=== PATIENT | female | born 1990 | race Caucasian/White ===

== ENCOUNTER 2021-01-25 02:28 | Emergency (ER) | payer BC, OTHER ==
[2021-01-25] MEDS ORDERED: ONDANSETRON 4 MG/2 ML VIAL IVPUSH ONE ×3 (02:43→12:56)
[2021-01-25] MEDS ORDERED: morphine CARPU-JECT 4 MG/1 ML DISP.SYRIN IVPUSH ONE (02:43)
[2021-01-25] MEDS ORDERED: ACETAMINOPHEN 1000 MG/100 ML VIAL IVPB ONE (02:43)
[2021-01-25] MEDS ORDERED: LACTATED RINGERS SOLUTION 1000 ML INFUS.BAG IV ONE ×2 (02:44→04:48)
[2021-01-25] MEDS ORDERED: morphine SULFATE 4 MG/ML VIAL ONE (02:46)
[2021-01-25] MEDS ORDERED: ONDANSETRON 4 MG/2 ML VIAL ONE ×3 (02:46→13:08)
[2021-01-25] MEDS ORDERED: ACETAMINOPHEN INJECTION 100 ML IVPB ONE (02:46)
[2021-01-25 03:01] LABS: EOS % 1.4 % (0-4.5); HEMATOCRIT 42.1 % (32.4-45.2); HEMOGLOBIN 14.4 GM/dL (10.7-15.3); LYMPH % 24.1 % (8-40); MCH 29.7 pg (25.7-33.7); MCHC 34.2 g/dl (32.0-36.0); MEAN CELL VOLUME 86.8 fl (80-96); MEAN PLT VOLUME 7.4 fl (7.5-11.1); MONO % 3.6 % (3.8-10.2); NEUT % 69.9 % (42.8-82.8); PLATELET COUNT 379 10^3/uL (134-434); RBC 4.85 M/mm3 (3.60-5.2); RDW 12.2 % (11.6-15.6); WHITE BLOOD COUNT 19.1 K/mm3 (4.0-10.0)
[2021-01-25 03:08] VITALS: BMI 22.8
[2021-01-25 03:09] LABS: PROTHROMBIN TIME (PATIENT) 11.2 SEC (9.7-13.0)
[2021-01-25 03:11] LABS: ACTIVATED PTT 26.5 SECONDS (25.2-36.5)
[2021-01-25 03:22] LABS: CHLORIDE 106 mmol/L (98-107); SODIUM 140 mmol/L (136-145)
[2021-01-25 03:24] LABS: CALCIUM 9.1 mg/dL (8.5-10.1)
[2021-01-25 03:25] LABS: ALBUMIN 3.8 g/dl (3.4-5.0); ANION GAP 12 MMOL/L (8-16); BLOOD UREA NITROGEN 11.8 mg/dL (7-18); CO2 22 mmol/L (21-32); GLUCOSE,RANDOM 145 mg/dL (74-106); LIPASE 142 U/L (73-393)
[2021-01-25 03:28] LABS: SGOT/AST 65 U/L (15-37); SGPT/ALT 65 U/L (13-61)
[2021-01-25 03:29] LABS: BILIRUBIN,TOTAL 0.5 mg/dL (0.2-1); TOT PROT 7.7 g/dl (6.4-8.2)
[2021-01-25 03:31] LABS: ALK PHOS 99 U/L (45-117)
[2021-01-25 03:48] LABS: LACTIC ACID 5.6 mmol/L (0.4-2.0)
[2021-01-25] MEDS ORDERED: HYDROmorphone HCL CARPU-JECT 2 MG/1 ML DISP.SYRIN IVPUSH ONE ×2 (04:25)
[2021-01-25] MEDS ORDERED: HYDROmorphone HCl 2 MG/ML VIAL ONE (04:31)
[2021-01-25] MEDS: FAMOTIDINE 20 MG/50 ML IVPB 20 MG/50 ML MG IVPB ONE ×2 (04:43→05:25)
[2021-01-25] MEDS ORDERED: FAMOTIDINE/PF 20 MG/2 ML VIAL ONE ×2 (04:51→05:17)
[2021-01-25] MEDS ORDERED: METOCLOPRAMIDE HCL INJECTION 10 MG/2 ML VIAL IVPUSH ONE (05:19)
[2021-01-25] MEDS ORDERED: METOCLOPRAMIDE HCL INJECTION 10 MG/2 ML VIAL ONE (05:20)
[2021-01-25 08:41] LABS: LACTIC ACID 2.7 mmol/L (0.4-2.0)
[2021-01-25 12:33] LABS: URINE APPEARANCE CLEAR; URINE BILIRUBIN NEGATIVE (NEGATIVE); URINE COLOR YELLOW; URINE GLUCOSE (UA) NEGATIVE (NEGATIVE); URINE KETONE NEGATIVE (NEGATIVE)
[2021-01-25 12:34] LABS: URINE LEUK ESTERASE NEGATIVE (NEGATIVE); URINE NITRITE NEGATIVE (NEGATIVE); URINE PROTEIN NEGATIVE (NEGATIVE); URINE UROBILINOGEN 0.2 mg/dL (0.2-1.0)
[2021-01-25 12:35] LABS: EPI CELLS 13.4 /uL (0-25.1); HYALINE CASTS 0.25 /uL (0-3.1); URINE BACTERIA 475.2 /uL (0-1359); URINE RBC 3.1 /uL (0-23.9); URINE WBC 37 /uL (0-25.8)
[2021-01-25 13:49] VITALS: BP 112/66; PULSE 58; TEMP 98.2
== END 2021-01-25 13:15 | disposition home or self-care (01) ==
LOC: JER 02:28
PROC: 3E0333Z Introduction of Anti-inflammatory into Peripheral Vein, Percutaneous Approach (ICD-10-PCS; principal; 2021-01-25)
PROC: 3E033GC Introduction of Other Therapeutic Substance into Peripheral Vein, Percutaneous Approach (ICD-10-PCS; 2021-01-25)
PROC: 3E033GC Introduction of Other Therapeutic Substance into Peripheral Vein, Percutaneous Approach (ICD-10-PCS; 2021-01-25)
PROC: 3E033NZ Introduction of Analgesics, Hypnotics, Sedatives into Peripheral Vein, Percutaneous Approach (ICD-10-PCS; 2021-01-25)
PROC: 3E033GC Introduction of Other Therapeutic Substance into Peripheral Vein, Percutaneous Approach (ICD-10-PCS; 2021-01-25)
PROC: 3E033GC Introduction of Other Therapeutic Substance into Peripheral Vein, Percutaneous Approach (ICD-10-PCS; 2021-01-25)
PROC: 3E033NZ Introduction of Analgesics, Hypnotics, Sedatives into Peripheral Vein, Percutaneous Approach (ICD-10-PCS; 2021-01-25)
PROC: 3E033GC Introduction of Other Therapeutic Substance into Peripheral Vein, Percutaneous Approach (ICD-10-PCS; 2021-01-25)
PROC: 3E033GC Introduction of Other Therapeutic Substance into Peripheral Vein, Percutaneous Approach (ICD-10-PCS; 2021-01-25)
PROC: 3E033GC Introduction of Other Therapeutic Substance into Peripheral Vein, Percutaneous Approach (ICD-10-PCS; 2021-01-25)
DX: R11.2 Nausea with vomiting, unspecified (principal); R10.84 Generalized abdominal pain
CPT/HCPCS: 36415; 71045-TC-FY; 74177-TC; 76705-TC; 80053; 81003; 82962; 83605; 83690; 83735; 84484; 84703; 85025; 85610; 85730; 86850; 86900; 86901; 87086; 93005; 93010; 99285-25; J0131